=== PATIENT | male | born 2005 | race Two or more races ===

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

== ENCOUNTER 2025-03-12 15:05 | Emergency (ER) | payer MEDICAID, OTHER ==
[~2025-03-12] VITALS: Ht 167.6 cm; Wt 107.4 kg
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
[2025-03-12] MEDS ORDERED: IBUP-1455 PO (16:56)
[2025-03-12 17:01] VITALS: BP 138/89; PULSE 78; RESP 16; TEMP 98.7; O2SAT 98
== END 2025-03-12 17:02 | disposition home or self-care (01) ==
LOC: ER 15:05
DX: M79.671 Pain in right foot (principal); Z48.00 Encounter for change or removal of nonsurgical wound dressing